=== PATIENT | male | born 1965 | race Caucasian/White ===

== ENCOUNTER 2021-12-28 10:03 | Observation (INO) | payer BC ==
[2021-12-28 10:09] LABS: Glucose,Whole Blood 90 mg/dL (75-99)
[2021-12-28] MEDS ORDERED: ALTEPLASE BOLUS FOR STROKE 9 MG in EMPTY SYRINGE 1 SYR IV STA (10:09)
[2021-12-28] MEDS ORDERED: ALTEPLASE 81 MG in EMPTY BAG 1 BAG IV STA (10:09)
--- NOTE | 2021-12-28 10:30 | CT ---
EXAMINATION TYPE: CT brain wo con for TPA DATE OF EXAM: 12/28/2021 COMPARISON: None HISTORY: 56-year-old male neurologic deficit, acute, stroke suspected, unresponsive, confusion TECHNIQUE: Examination was done in axial plane without intravenous contrast. Coronal and sagittal r econstructions performed. CT DLP: 1132 mGycm Automated exposure control for dose reduction was used. FINDINGS: There is no evidence of acute intracranial hemorrhage, acute ischemic changes, mass, mass-effect, or extra-axial fluid collection. There is no effacement of cerebral sulci or basal subarachnoid cister ns. There is no hydrocephalus. There is no midline shift. [place]-white matter distinction is preserv ed. Leftward nasal septal deviation. Paranasal sinuses and mastoid air cells well pneumatized. Orbits and globes are intact. IMPRESSION: No acute intracranial abnormality seen.
--- NOTE | 2021-12-28 10:59 | CT ---
EXAMINATION TYPE: CT angio head neck DATE OF EXAM: 12/28/2021 COMPARISON: CT brain same day HISTORY: 56-year-old male neurologic deficit, acute, stroke suspected, Altered mental status, unrespo nsive TECHNIQUE: Contiguous axial scanning of the head and neck performed with IV Contrast, patient injecte d with 65 mL of Isovue 370. Coronal/sagittal MIP reconstructions performed. 3-D reconstructions gener ated on a dedicated independent workstation. CT DLP: 908.1 mGycm Automated exposure control for dose reduction was used. FINDINGS: NECK: Conventional arch vessel branching anatomy. The bilateral vertebral arteries are codominant and patent throughout the course. Brachiocephalic artery is tortuous. The right common and internal carotid arteries are widely patent by NASCET criteria. Tortuous upper c ervical right ICA. The left common and internal carotid arteries are widely patent by NASCET criteria. Bilateral palatine tonsillar hypertrophy. Calcifications on the right measuring up to 5 mm suggests s equela of prior infection. There is asymmetric prominence along the hypopharynx with soft tissue effacement of the right pirifor m sinus, axial image 397. This should be correlated with direct inspection to exclude a mucosal lesio n. There is a mild groundglass changes in the visualized upper lungs which should be correlated clinical ly to exclude pneumonitis. HEAD: The vertebral and basilar arteries are patent. Anatomic variation with a large right posterior commun icating artery. Posterior circulation otherwise patent. The internal carotid arteries and remainder of the anterior circulation appear patent. Normal anatomi c variation with early bifurcation M1 segment left MCA. Dural venous sinuses are patent. No aneurysmal change is identified. IMPRESSION: NECK: 1. WIDELY PATENT CAROTID AND VERTEBRAL ARTERIES OF THE NECK. 2. PALATINE TONSILLAR HYPERTROPHY. SOME ASYMMETRIC SOFT TISSUE PROMINENCE ALONG THE RIGHT SIDE OF THE HYPOPHARYNX EFFACING THE RIGHT PIRIFORM SINUS. THIS MAY BE CHRONIC POSTINFLAMMATORY CHANGE. RECOMMEN D OUTPATIENT DIRECT VISUALIZATION TO EXCLUDE A MUCOSAL LESION HERE. 3. MILD GROUNDGLASS CHANGES IN THE VISUALIZED UPPER LUNGS. CORRELATE TO EXCLUDE SOME TYPE OF PNEUMONI TIS SUCH COVID PNEUMONIA. HEAD: 4. NO LARGE VESSEL INTRACRANIAL ARTERIAL OCCLUSION, SIGNIFICANT STENOSIS, OR ANEURYSMAL CHANGE IS SEE N.
--- NOTE | 2021-12-28 11:03 | XR ---
EXAMINATION TYPE: XR chest 2V DATE OF EXAM: 12/28/2021 COMPARISON: NONE HISTORY: Shortness of breath TECHNIQUE: Frontal and lateral views of the chest are obtained. FINDINGS: Scattered senescent parenchymal changes noted. Hyperinflation compatible with COPD. No evidence for infiltrate. No evidence for atelectasis. Heart size is stable. Mediastinal structures are stable and grossly unremarkable. No evidence for hilar prominence. Degenerative changes dorsal spine. IMPRESSION: 1. No evidence for acute pulmonary disease.
[2021-12-28] MEDS ORDERED: SODIUM CHLORIDE 0.9% 50 ML MINI-BAG IV ONE (11:09)
[2021-12-28 11:13] LABS: Basophils % (A) 0 %; Eosinophils # (A) 0.1 k/uL (0-0.7); Eosinophils % (A) 1 %; HCT 41.9 % (39.0-53.0); HGB 14.4 gm/dL (13.0-17.5); Lymphocytes # (A) 0.8 k/uL (1.0-4.8); Lymphocytes % (A) 9 %; MCH 31.5 pg (25.0-35.0); MCHC 34.3 g/dL (31.0-37.0); MCV 91.8 fL (80.0-100.0); Mean Platelet Volume 8.1; Monocytes # (A) 0.7 k/uL (0-1.0); Monocytes % (A) 8 %; Neutrophils # (A) 7.5 k/uL (1.3-7.7); Neutrophils % (A) 81 %; Platelet Count 268 k/uL (150-450); RBC 4.56 m/uL (4.30-5.90); RDW 14.6 % (11.5-15.5); WBC 9.2 k/uL (3.8-10.6)
[2021-12-28 11:23] LABS: ALT 47 U/L (4-49); AST 43 U/L (17-59); African American GFR (CKD) >90 (>60 ml/min/1.73 sqM); Albumin 4.1 g/dL (3.5-5.0); Alkaline Phosphatase 65 U/L (38-126); Anion Gap 12 mmol/L; Blood Urea Nitrogen 12 mg/dL (9-20); Calcium 9.5 mg/dL (8.4-10.2); Carbon Dioxide 21 mmol/L (22-30); Chloride 107 mmol/L (98-107); Glucose 90 mg/dL (74-99); Non-African American GFR(CKD) >90 (>60 ml/min/1.73 sqM); Potassium 3.1 mmol/L (3.5-5.1); Sodium 140 mmol/L (137-145); Total Bilirubin 1.7 mg/dL (0.2-1.3); Total Protein 6.4 g/dL (6.3-8.2)
[2021-12-28 11:25] LABS: Partial Thromboplastin Time 23.1 sec (22.0-30.0); Prothrombin Time 10.9 sec (9.0-12.0)
--- NOTE | 2021-12-28 12:39 | ED ---
Neuro HPI - General Chief Complaint: Neuro Symptoms/Deficit Stated Complaint: AMS Time Seen by Provider: 12/28/21 10:03 Source: family, RN/MD, EMS, RN notes reviewed Mode of arrival: EMS Limitations: altered mental status - History of Present Illness Is the patient presenting with stroke symptoms?: Yes Last Known Well Date: 12/28/21 Last Known Well Time: 09:39 Initial Comments: 56-year-old male with a history of high cholesterol but no prior history of stroke who presents by EMS from his doctor's office where he suddenly became less responsive confused unable follow commands with some recurrent generalized weakness. Stroke as suspected. He was brought here by EMS. A code alteplase was called immediately upon arrival. The stroke team was activated. No other information available at this time but later was found that the patient had driven him and his to his doctor's appointment he been acting his usual self this morning other than he has been somewhat anxious apparently. Per paramedics patient was able to weight-bear in the transfer into the EMS cart. H e does not seem to be able move his legs by himself however. - Related Data Home Medications: Home Medications Medication Instructions Recorded Confirmed Albuterol Inhaler [Ventolin Hfa 2 puff INHALATION RT-Q4H PRN 12/28/21 12/28/21 Inhaler] Aspirin EC [Ecotrin Low Dose] 81 mg PO DAILY 12/28/21 12/28/21 Atorvastatin Calcium [Lipitor] 20 mg PO HS 12/28/21 12/28/21 Levothyroxine Sodium [Synthroid] 150 mcg PO DAILY 12/28/21 12/28/21 Allergies/Adverse Reactions: Allergies Allergy/AdvReac Type Severity Reaction Status Date / Time No Known Allergies Allergy Verified 12/28/21 10:57 Review of Systems ROS Statement: Those systems with pertinent positive or pertinent negative responses have been documented in the HPI. ROS Other: All systems not noted in ROS Statement are negative. Limitations: ROS unobtainable due to patients medical condition General Exam - General Exam Comments Initial Comments: This is a well-developed well-nourished awake but very slow to respond male who appears to be demonstrate expressive and receptive aphasia Limitations: altered mental status, physical limitation General appearance: obtunded Head exam: Present: atraumatic, normocephalic, normal inspection Eye exam: Present: normal appearance, PERRL, EOMI. Absent: scleral icterus, conjunctival injection, periorbital swelling ENT exam: Present: normal exam, mucous membranes moist Neck exam: Present: normal inspection. Absent: tenderness, meningismus, lymphadenopathy Respiratory exam: Present: normal lung sounds bilaterally. Absent: respiratory distress, wheezes, rales, rhonchi, stridor Cardiovascular Exam: Present: regular rate, normal rhythm, normal heart sounds. Absent: systolic murmur, diastolic murmur, rubs, gallop, clicks GI/Abdominal exam: Present: soft, normal bowel sounds. Absent: distended, tenderness, guarding, rebound, rigid Extremities exam: Present: normal inspection, full ROM, normal capillary refill. Absent: tenderness, pedal edema, joint swelling, calf tenderness Back exam: Present: normal inspection Neurological exam: Present: alert, CN II-XII intact, reflexes normal Psychiatric exam: Present: normal affect, normal mood Skin exam: Present: warm, dry, intact, normal color. Absent: rash Stroke MDM - Lab Data Result diagrams: 12/28/21 10:35 12/28/21 10:35 Lab Results 12/28/21 12/28/21 12/28/21 Range/Units 10:06 10:35 10:35 WBC 9.2 (3.8-10.6) k/uL RBC 4.56 (4.30-5.90) m/uL Hgb 14.4 (13.0-17.5) gm/dL Hct 41.9 (39.0-53.0) % MCV 91.8 (80.0-100.0) fL MCH 31.5 (25.0-35.0) pg MCHC 34.3 (31.0-37.0) g/dL RDW 14.6 (11.5-15.5) % Plt Count 268 (150-450) k/uL MPV 8.1 Neutrophils % 81 % Lymphocytes % 9 % Monocytes % 8 % Eosinophils % 1 % Basophils % 0 % Neutrophils # 7.5 (1.3-7.7) k/uL Lymphocytes # 0.8 L (1.0-4.8) k/uL Monocytes # 0.7 (0-1.0) k/uL Eosinophils # 0.1 (0-0.7) k/uL Basophils # 0.0 (0-0.2) k/uL PT 10.9 (9.0-12.0) sec INR 1.0 (<1.2) APTT 23.1 (22.0-30.0) sec Sodium (137-145) mmol/L Potassium (3.5-5.1) mmol/L Chloride (98-107) mmol/L Carbon Dioxide (22-30) mmol/L Anion Gap mmol/L BUN (9-20) mg/dL Creatinine (0.66-1.25) mg/dL Est GFR (CKD-EPI)AfAm (>60 ml/min/1.73 sqM) Est GFR (CKD-EPI)NonAf (>60 ml/min/1.73 sqM) Glucose (74-99) mg/dL POC Glucose (mg/dL) 90 (75-99) mg/dL POC Glu Bill Board Poster ID Emely Trivedi Calcium (8.4-10.2) mg/dL Total Bilirubin (0.2-1.3) mg/dL AST (17-59) U/L ALT (4-49) U/L Alkaline Phosphatase (38-126) U/L Troponin I (0.000-0.034) ng/mL Total Protein (6.3-8.2) g/dL Albumin (3.5-5.0) g/dL Coronavirus (PCR) (Not Detectd) 12/28/21 12/28/21 12/28/21 Range/Units 10:35 10:35 11:49 WBC (3.8-10.6) k/uL RBC (4.30-5.90) m/uL Hgb (13.0-17.5) gm/dL Hct (39.0-53.0) % MCV (80.0-100.0) fL MCH (25.0-35.0) pg MCHC (31.0-37.0) g/dL RDW (11.5-15.5) % Plt Count (150-450) k/uL MPV Neutrophils % % Lymphocytes % % Monocytes % % Eosinophils % % Basophils % % Neutrophils # (1.3-7.7) k/uL Lymphocytes # (1.0-4.8) k/uL Monocytes # (0-1.0) k/uL Eosinophils # (0-0.7) k/uL Basophils # (0-0.2) k/uL PT (9.0-12.0) sec INR (<1.2) APTT (22.0-30.0) sec Sodium 140 (137-145) mmol/L Potassium 3.1 L (3.5-5.1) mmol/L Chloride 107 (98-107) mmol/L Carbon Dioxide 21 L (22-30) mmol/L Anion Gap 12 mmol/L BUN 12 (9-20) mg/dL Creatinine 0.64 L (0.66-1.25) mg/dL Est GFR (CKD-EPI)AfAm >90 (>60 ml/min/1.73 sqM) Est GFR (CKD-EPI)NonAf >90 (>60 ml/min/1.73 sqM) Glucose 90 (74-99) mg/dL POC Glucose (mg/dL) (75-99) mg/dL POC Glu Bill Board Poster ID Calcium 9.5 (8.4-10.2) mg/dL Total Bilirubin 1.7 H (0.2-1.3) mg/dL AST 43 (17-59) U/L ALT 47 (4-49) U/L Alkaline Phosphatase 65 (38-126) U/L Troponin I <0.012 (0.000-0.034) ng/mL Total Protein 6.4 (6.3-8.2) g/dL Albumin 4.1 (3.5-5.0) g/dL Coronavirus (PCR) Not Detected (Not Detectd) - NIH Stroke Scale 1a. Level of Consciousness: (1) not alert, arousable 1b. LOC Questions: (2) answers no questions correctly 1c. LOC Commands: (2) performs no tasks correctly 2. Best Gaze: (2) forced deviation 3. Visual: (0) no visual loss 4. Facial Palsy: (0) normal symmetrical movement 5a. Motor Arm Left: (3) no gravity effort 5b. Motor Arm Right: (3) no gravity effort 6a. Motor Leg Left: (3) no gravity effort 6b. Motor Leg Right: (3) no gravity effort 7. Limb Ataxia: (2) present 2 limbs 8. Sensory: (2) severe/total sensory loss 9. Best Language: (2) severe aphasia 10. Dysarthria: (1) mild/moderate dysarthria 11. Extinction/Inattention: (2) profound inattention - Medical Decision Making The patient present with evidence of possible CVA with sudden onset of confusion with compared receptive and expressive aphasia. No trauma reported fevers chills or sweats patient was apparently acting his usual self this morning except for maybe being somewhat anxious about events in his personal life. He presents emergency department by EMS with a code alteplase being called patient did have CAT scans and CT angiogram done negative for acute findings. Patient quickly recover from an approximately 29 213 and 12 then down to a 1. Patient was not a candidate for TPA. I did discuss the case with his family and him reevaluation the patient is able move all of his extremities answer questions appropriately though somewhat slowly patient will be admitted for inpatient evaluation and treatment for TIA. Conversion reaction may be considered. Patient does have low potassium this will be corrected magnesium is pending - Radiology Data Radiology results: report reviewed (No evidence of bleeding obstruction seen on the CT angios.), image reviewed - EKG Data -: EKG Interpreted by Me EKG shows normal: sinus rhythm (Sinus rhythm rate 71. Interval 161 QRS 88 QT since QTC 387/410 nonspecific T-wave configuration occasional PVCs) Past Medical History Past Medical History: Hypertension, Thyroid Disorder History of Any Multi-Drug Resistant Organisms: Unobtainable Past Surgical History: Unable to Obtain Past Psychological History: Unable to Obtain Smoking Status: Unknown if ever smoked Past Alcohol Use History: Unable to Obtain Past Drug Use History: Unable to Obtain Course Vital Signs 12/28/21 12/28/21 12/28/21 10:05 10:25 10:30 Temperature 97.3 F L 97.9 F 98.0 F Pulse Rate 89 74 70 Respiratory 16 16 16 Rate Blood Pressure 151/84 158/88 156/82 O2 Sat by Pulse 100 99 99 Oximetry 12/28/21 12/28/21 11:00 12:03 Temperature 97.5 F L 97.7 F Pulse Rate 71 77 Respiratory 16 16 Rate Blood Pressure 154/81 155/89 O2 Sat by Pulse 100 100 Oximetry - Reevaluation(s) Reevaluation #1: 12/28/21 12:40 Reevaluation patient finds it his mentation is improving his initial NIH score was approximately 29 he had markedly improved and a brief period time Reevaluation #2: 12/28/21 12:40 I did discuss the findings with the patient's was present patient with more alert and demonstrated improved cognition. Reevaluation was able move all his extremities and follow commands. Critical Care Time Critical Care Time: Yes Total Critical Care Time: 39 Critical Care Time: Critical care time includes initial presentation with history and physical discussed with paramedics on arrival labs x-rays CAT scans discuss with the interventional neurologist Dr. hampton discussed with Dr. Chapa this with the patient's . Review of old charting was available multiple reevaluation the patient documentation the above Disposition Clinical Impression: Transient cerebral ischemia Disposition: ADMITTED IP TO THIS HOSP Condition: Stable Referrals: August Chapa MD [Primary Care Provider] - 1-2 days
[2021-12-28] MEDS ORDERED: POTASSIUM CHLORIDE ER 20 MEQ TAB.ER PO STA (12:53)
[2021-12-28] MEDS ORDERED: ASPIRIN 325 MG TAB PO STA (12:54)
[2021-12-28] MEDS ORDERED: POTASSIUM CHLORIDE 20 MEQ in WATER FOR INJECTION 1 100ML.BAG IVPB STA (12:54)
[2021-12-28] MEDS ORDERED: ALBUTEROL NEBULIZED 2.5 MG/3 ML INHALATION PRN (12:56)
[2021-12-28] MEDS ORDERED: Potassium Replacement Protocol 1 EACH MISC MISCELLANE PRN (13:34)
[2021-12-28] MEDS: SODIUM CHLORIDE 0.9% 1,000 ML IV SCH ×2 (13:37→20:42)
[2021-12-28] MEDS: FAMOTIDINE 20 MG TAB PO SCH (20:42)
[2021-12-28] MEDS ORDERED: ATORVASTATIN 20 MG TAB PO SCH (21:00)
[2021-12-28] MEDS ORDERED: ATORVASTATIN 80 MG TAB PO SCH (21:00)
--- NOTE | 2021-12-29 00:43 | P.CNNES ---
History of Present Illness Consult date: 12/28/21 Requesting physician: Nigel Mixon Reason for Consult: TIA History of Present Illness: Patient is a 56-year-old male came to the hospital by ambulance today at 10:03 AM for possible TIA versus CVA. Patient tells me that he went to Dr. Chapa's office, his primary physician for a routine checkup early this morning. He was fine prior to his arrival to the office. While he was in the office, he started shaking all of a sudden, involving both sides. He denies losing consciousness. He was brought to the hospital. As per EMS flow sheet, the staff at the scene reported patient suddenly became altered and not responding verbally. Per patient's report, patient drove to the appointment and was acting completely normal this a.m. No history of falls or trauma. Patient was not complaining of anything earlier in the morning. Patient not responding to any verbal instructions with any purposeful movements. Patient was unable to communicate any words or sounds. He was able to stand but unsteady, no attempt to ambulate. Patient's pupils were equal and reactive. No obvious facial droop or obvious unilateral weakness. Patient's blood pressure was 136/72, pulse of 76, respiration 18 saturation 98%. Blood sugar 105. Vital signs on arrival blood pressure 151/84 pulse 89 temperature 97.3. Blood pressure has been running slightly high 155/89 in the ER. Patient's blood test shows normal CBC, PT/PTT, Chem-20. Troponin negative, palacio virus PCR negative. Computed tomography scan of the head showed no acute process. Paranasal sinuses are clear. I personally reviewed computed tomography scan of the head, and agree with the findings. CTA of the head showed no large vessel intracranial arterial occlusion, significant stenosis or aneurysm. CTA of the neck showed widely patent carotid and vertebral arteries of the neck. [place] tonsillar hypertrophy. Mild groundglass changes in the visualized upper lungs. Correlate to exclude some type of pneumonitis. I would defer to internal medicine to address these 2 later findings. Chest x-ray is normal. EKG with sinus rhythm with occasional ventricular premature complexes. Nonspecific T-wave abnormality. Apparently patient's symptoms rapidly resolved in the ER. Initial NIH stroke scale was reported 28. However while in the ER, it started improving down to 12 and then 1. Stroke code was activated. Patient was not a candidate for TPA because of rapidly improving symptoms as above. Patient denies any headache any numbness tingling slurred speech or facial droop. Home medications include aspirin 81 mg, Lipitor 20 mg, levothyroxine and albuterol. Patient denies diabetes, no hypertension, denies tobacco use. On asking about d rinking habits, patient states that he drank 2 or 3 time only 15 years ago. Regarding tobacco he mentions that he smoked couple cigarettes a day only for a month, several years ago. Denies any history of seizures. Patient states that he lives with his and son. At present he feels back to baseline. Review of Systems As mentioned above in detail in HPI. All other 14 point of review systems reviewed and noncontributory to the current illness. Past Medical History Past Medical History: Hyperlipidemia, Hypertension, Thyroid Disorder Additional Past Medical History / Comment(s): hernia History of Any Multi-Drug Resistant Organisms: Unobtainable Past Surgical History: Hernia Repair, Orthopedic Surgery Additional Past Surgical History / Comment(s): Bilateral knee arthoplasty Past Anesthesia/Blood Transfusion Reactions: No Reported Reaction Past Psychological History: No Psychological Hx Reported Smoking Status: Never smoker Past Alcohol Use History: None Reported Past Drug Use History: None Reported - Past Family History Mother Additional Family Medical History / Comment(s): "cardiac issues" at 82 years old Father Additional Family Medical History / Comment(s): anxiety, at 82 years old. Medications and Allergies Home Medications Medication Instructions Recorded Confirmed Type Albuterol Inhaler [Ventolin Hfa 2 puff INHALATION RT-Q4H PRN 12/28/21 12/28/21 History Inhaler] Aspirin EC [Ecotrin Low Dose] 81 mg PO DAILY 12/28/21 12/28/21 History Atorvastatin Calcium [Lipitor] 20 mg PO HS 12/28/21 12/28/21 History Levothyroxine Sodium [Synthroid] 150 mcg PO DAILY 12/28/21 12/28/21 History Allergies Allergy/AdvReac Type Severity Reaction Status Date / Time No Known Allergies Allergy Verified 12/28/21 10:57 Physical Examination - Vital Signs Vital Signs: Vital Signs Temp Pulse Pulse Resp BP BP Pulse Ox 12/28/21 17:37 98 F 71 15 142/74 98 12/28/21 12:03 97.7 F 77 16 155/89 100 12/28/21 11:00 97.5 F L 71 16 154/81 100 12/28/21 10:30 98.0 F 70 16 156/82 99 12/28/21 10:25 97.9 F 74 16 158/88 99 12/28/21 10:05 97.3 F L 89 16 151/84 100 Intake and Output 12/28/21 12/28/21 12/28/21 06:59 14:59 22:59 Intake Total 120 Balance 120 Intake: Oral 120 Other: Weight 112.945 kg Patient is a middle aged male, appears slightly older than his stated age. Patient is alert awake oriented to time place and person. He knows it is 12/27/2021 and that he is in [facility] in [place]. Knows name of the current president. Patient has often delayed speech, slow mentation and increased latency time to answer questions. Speech and language functions are normal. Patient can name and repeat very well. No aphasia or dysarthria. Attention, concentration and fund of knowledge is slightly limited. On cranial examination, pupils are equal, round and reacting to light, visual basurto are full on confrontation with no neglect on double simultaneous stimulation, extraocular muscles are intact with no nystagmus. Face is symmetric, tongue protrudes to the midline. Palatal elevation and sensation normal, hearing is slightly decreased for finger rubbing bilaterally and shoulder shrug normal, facial sensation normal. Shoulder shrug normal. On muscle strength testing, there is no pronator drift and the strength is normal in arms and legs distally and proximally. Deep tendon reflexes are symmetric but to 1+ in both arms and legs and plantars are downgoing bilaterally. Sensory to touch is equal with no neglect. Cerebellar function showed no ataxia for [id number] testing. Patient does have some distal tremors for ubkqsb-uw-[id number] testing bilaterally. No ataxia for [id number]-[id number] testing. Tone and bulk of muscles normal. Gait deferred. On general examination, there is no carotid bruit or murmur, S1-S2 audible. Abdomen is soft nontender. no organomegaly. Bowel sounds present. Chest is clear. Peripheral pulses are present. No edema. Results - Laboratory Findings CBC and BMP: 12/28/21 10:35 12/28/21 18:17 Abnormal Lab Findings: Abnormal Labs 12/28/21 12/28/21 10:35 10:35 Lymphocytes # 0.8 L Potassium 3.1 L Carbon Dioxide 21 L Creatinine 0.64 L Total Bilirubin 1.7 H Assessment and Plan Assessment: * Possible TIA, rule out CVA. Seizure also in the differential. * Hypertension * Hyperlipidemia Plan: * MRI of the brain without contrast rule out CVA * Patient had a normal CTA of head and neck. * 2-D echo with bubble study, rule out PFO. * EEG rule out epileptiform activity. * Lipid panel, hemoglobin A1c * Telemetry monitoring * Patient was taking aspirin 81 mg daily at home. Patient has received aspirin 325 mg in the ER. Continue aspirin 81 mg daily for now. * Continue close neuro checks. * Neurology will follow. Thank you for the consult.
[2021-12-29] MEDS: LEVOTHYROXINE 75 MCG TAB PO SCH (06:38)
[2021-12-29] MEDS: FAMOTIDINE 20 MG TAB PO SCH ×2 (09:12→21:33)
[2021-12-29 09:20] LABS: Basophils % (A) 0 %; Eosinophils # (A) 0.1 k/uL (0-0.7); Eosinophils % (A) 1 %; HCT 41.2 % (39.0-53.0); Lymphocytes # (A) 0.7 k/uL (1.0-4.8); Lymphocytes % (A) 10 %; MCH 31.7 pg (25.0-35.0); MCV 93.2 fL (80.0-100.0); Mean Platelet Volume 7.8; Monocytes # (A) 0.4 k/uL (0-1.0); Monocytes % (A) 6 %; Neutrophils # (A) 6.3 k/uL (1.3-7.7); Neutrophils % (A) 82 %; Platelet Count 266 k/uL (150-450); RBC 4.42 m/uL (4.30-5.90); RDW 14.7 % (11.5-15.5); WBC 7.6 k/uL (3.8-10.6)
[2021-12-29 09:45] LABS: ALT 41 U/L (4-49); AST 31 U/L (17-59); African American GFR (CKD) >90 (>60 ml/min/1.73 sqM); Albumin 3.4 g/dL (3.5-5.0); Alkaline Phosphatase 56 U/L (38-126); Anion Gap 5 mmol/L; Blood Urea Nitrogen 7 mg/dL (9-20); Carbon Dioxide 25 mmol/L (22-30); Chloride 108 mmol/L (98-107); Glucose 118 mg/dL (74-99); Non-African American GFR(CKD) >90 (>60 ml/min/1.73 sqM); Potassium 3.3 mmol/L (3.5-5.1); Sodium 138 mmol/L (137-145); Total Bilirubin 1.5 mg/dL (0.2-1.3); Total Protein 5.9 g/dL (6.3-8.2)
--- NOTE | 2021-12-29 11:46 | MR ---
EXAMINATION TYPE: MR brain wo con DATE OF EXAM: 12/29/2021 COMPARISON: CT brain 1 day earlier. HISTORY: TIA vs CVA. Acute onset neural deficit on admission one day earlier. TECHNIQUE: Multiplanar, multisequence imaging of the brain and brainstem is performed without IV cont rast. FINDINGS: Diffusion weighted images demonstrate no evidence of a recent infarct or other diffusion abnormality. There is no extraaxial fluid collection or significant white matter signal abnormality. The ventricu lar system and cisternal spaces are normal in size and appearance. The brain volume is age appropria te. Midline structures demonstrate normal morphology. The craniocervical junction appears within normal limits. Normal vascular flow voids are present. The visualized sinuses are clear and the globes are i ntact. Small amount of fluid signal right mastoid air cells. Correlate clinically to exclude mastoidi tis. IMPRESSION: No MRI evidence for recent infarct.
[2021-12-29] MEDS: SODIUM CHLORIDE 0.9% 1,000 ML IV SCH ×2 (11:55→21:30)
[2021-12-29] MEDS: POTASSIUM CHLORIDE ER 20 MEQ TAB.ER PO SCH (11:55)
--- NOTE | 2021-12-29 15:00 | EEG ---
ELECTROENCEPHALOGRAM REPORT DATE OF SERVICE: 12/29/2021 PREAMBLE: This is a 56-year-old male with an episode of altered mental status with some shaking and expressive aphasia. Rule out stroke, TIA versus seizure. EEG FINDINGS: This is a 21-channel digital EEG recorded with video component, utilizing 10/20 international system with referential and bipolar montages. Background consists of well developed, well regulated, moderate voltage activity in 8-9 hertz alpha. Background is posterior-dominant and reactive to eye opening and closing. Photic driving response was not seen. Some drowsiness was seen with appearance of bilaterally symmetric theta frequency rhythm, but deeper stages of sleep were not seen. No focal or generalized epileptiform activity was seen. EKG channel showed no arrhythmia. IMPRESSION: This is a normal awake and drowsy EEG. No focal, lateralized or epileptiform activity was seen. MMDOM / CLAY: [id number] /
[2021-12-29 16:14] LABS: Chol/HDL Ratio 2.09 Ratio; LDL Cholesterol,Calculated 35.6 mg/dL (0.0-131.0); VLDL Calculation 10.38 mg/dL (5.00-40.00)
--- NOTE | 2021-12-29 16:28 | P.HPIM ---
<Kristie, - Last Filed: 12/29/21 15:58> History of Present Illness H&P Date: 12/29/21 Chief Complaint: altered mental status patient is a pleasant 48-year-old male, that was transported by EMS from Dr. Chapa's office for altered mental status versus cva. initial NIH score of 28 that decreased to 0 during ER visit. Patient has a pertinent medical history of hyperlipidemia, hypothyroidism, hypertension. Patient did have recent covid19 infection that required hospitalization in November. Did recover and was at home without residual effects.patient was examined in the ER, computed tomography scan of the head showed no acute process. CTA of the head showed no large vessel intracranial arterial occlusion, stenosis or aneurysm. CTA of the neck showed widely patent carotid and vertebral arteries of the neck. Mild groundglass changes was visualized in the upper lungs, recent covid19 infection in November. chest x-ray was negative for acute pulmonary disease. MRI found no evidence for recent infarct. 12/29/21 patient was seen and examined at bedside. Alert and oriented 3, but speech delayed. No aphasia or slurred speech or unilateral weakness. Denies chest pain, headache, dizziness, palpitations, abdominal pain. Reports some difficulty breathing. Lab work reviewed, potassium 3.3 replacement protocol ordered. Kidney function and lipid enzymes within normal range. EEG was normal with no focal lateralized or epileptiform activity seen. Awaiting neurology recommendations. Review of Systems Constitutional: Denies chills, Denies fever, Denies weakness Ears, nose, mouth and throat: Denies headache Cardiovascular: Denies irregular heart beat, Denies lightheadedness, Denies pa lpitations Respiratory: Reports dyspnea, Denies cough, Denies pain on inspiration Gastrointestinal: Denies abdominal pain, Denies nausea, Denies vomiting Musculoskeletal: Denies gait dysfunction, Denies leg numbness/tingling, Denies muscle weakness, Denies myalgias Integumentary: Denies change in hair/nails Neurological: Denies aphasia, Denies ataxia, Denies double vision, Denies gait dysfunction, Denies head injury, Denies headaches, Denies loss of vision, Denies memory loss, Denies syncope, Denies weakness, Denies visual changes Psychiatric: Denies confusion, Denies memory loss, Denies mood swings Endocrine: Denies high blood sugars, Denies low blood sugars Allergic/Immunologic: Denies urticaria Past Medical History Past Medical History: Hyperlipidemia, Hypertension, Thyroid Disorder Additional Past Medical History / Comment(s): hernia History of Any Multi-Drug Resistant Organisms: Unobtainable Past Surgical History: Hernia Repair, Orthopedic Surgery Additional Past Surgical History / Comment(s): Bilateral knee arthoplasty Past Anesthesia/Blood Transfusion Reactions: No Reported Reaction Past Psychological History: No Psychological Hx Reported Smoking Status: Never smoker Past Alcohol Use History: None Reported Past Drug Use History: None Reported - Past Family History Mother Additional Family Medical History / Comment(s): "cardiac issues" at 82 year s old Father Additional Family Medical History / Comment(s): anxiety, at 82 years old. Medications and Allergies Home Medications Medication Instructions Recorded Confirmed Type Albuterol Inhaler [Ventolin Hfa 2 puff INHALATION RT-Q4H PRN 12/28/21 12/28/21 History Inhaler] Aspirin EC [Ecotrin Low Dose] 81 mg PO DAILY 12/28/21 12/28/21 History Atorvastatin Calcium [Lipitor] 20 mg PO HS 12/28/21 12/28/21 History Levothyroxine Sodium [Synthroid] 150 mcg PO DAILY 12/28/21 12/28/21 History Mirtazapine [Remeron] 30 mg PO HS 30 Days #60 tab 01/03/22 Rx fluPHENAZine [Prolixin 1MG] 2 mg PO BID 30 Days #60 tablet 01/03/22 Rx Allergies Allergy/AdvReac Type Severity Reaction Status Date / Time No Known Allergies Allergy Verified 12/28/21 10:57 Physical Exam Vitals: Vital Signs Temp Pulse Pulse Resp BP BP Pulse Ox 12/29/21 12:08 98.2 F 69 15 143/87 100 12/29/21 08:44 97.9 F 84 18 159/87 95 12/29/21 04:00 97.9 F 75 17 134/70 98 12/29/21 03:56 97.9 F 75 17 134/70 98 12/29/21 02:00 67 19 12/28/21 22:59 98.0 F 67 19 129/73 98 12/28/21 22:58 98.0 F 67 17 129/73 98 12/28/21 20:00 97.7 F 73 17 129/76 96 12/28/21 19:56 97.7 F 73 17 129/76 96 12/28/21 17:37 98 F 71 15 142/74 98 Intake and Output 12/29/21 12/29/21 12/29/21 06:59 14:59 22:59 Intake Total 700 220 Balance 700 220 Intake: Intake, IV Titration 700 Amount Sodium Chloride 0.9% 1, 700 000 ml @ 100 mls/hr IV . Q10H ARMEN Rx#:[id number] Oral 220 Other: # Voids 3 2 - Constitutional General appearance: cooperative, no acute distress, obese - EENT Eyes: EOMI, PERRLA ENT: normal oropharynx Ears: bilateral: normal - Neck Neck: normal ROM Carotids: bilateral: upstroke normal - Respiratory Respiratory: bilateral: CTA - Cardiovascular Heart rate: 84 Rhythm: regular Heart sounds: normal: S1, S2 radial pulse Peripheral Pulses: bilateral: Normal - Gastrointestinal General gastrointestinal: normal bowel sounds, soft - Integumentary Integumentary: normal - Neurologic alert, oriented 3, delayed speech Neurologic: focal deficits - Musculoskeletal Musculoskeletal: gait normal - Psychiatric flat affect Psychiatric: A&O x's 3 Results CBC & Chem 7: 12/29/21 08:46 12/29/21 08:46 Labs: Abnormal Lab Results - Last 24 Hours (Table) 12/29/21 12/29/21 Range/Units 08:46 08:46 Lymphocytes # 0.7 L (1.0-4.8) k/uL Potassium 3.3 L (3.5-5.1) mmol/L Chloride 108 H (98-107) mmol/L BUN 7 L (9-20) mg/dL Glucose 118 H (74-99) mg/dL Total Bilirubin 1.5 H (0.2-1.3) mg/dL Total Protein 5.9 L (6.3-8.2) g/dL Albumin 3.4 L (3.5-5.0) g/dL Chest x-ray: report reviewed CT Scan - head: report reviewed Thrombosis Risk Factor Assmnt - DVT/VTE Prophylaxis DVT/VTE Prophylaxis: Low risk, early ambulation encouraged - Choose All That Apply Each Factor Represents 1 point: Age 41-60 years, Obesity (BMI >25) Other Risk Factors: No Other congenital or acquired thrombophilia - If yes, enter type in comment: No Thrombosis Risk Factor Assessment Total Risk Factor Score: 2 Thrombosis Risk Factor Assessment Level: Low Risk Assessment and Plan Assessment: altered mental status delayed speech possible seizure Hypertension Hyperlipidemia Hypothyroidism Plan: possible TIA, neurology on consult, previous imaging negative for acute infarct, Continue neuro checks Continue to monitor orientation and mental status echocardiogram ordered with bubble study to rule out PFO, per neurology recommendation EEG negative for epileptiform activity, continue to monitor for seizure activity continue current medication regimen Monitor vital signs Full code Further recommendations to come based on patient's clinical course Time with Patient: Greater than 30 <August Chapa - Last Filed: 01/12/22 19:48> History of Present Illness I have personally seen and examined the patient, reviewed the documentation and agree with the assessment and plan as written. Number of minutes spent on the visit: Greater than 15. Results CBC & Chem 7: 12/31/21 11:48 12/30/21 07:59
--- NOTE | 2021-12-29 16:38 | P.PN ---
Subjective Progress Note Date: 12/29/21 Patient was seen for a follow-up. Patient continues to be somewhat confused. Dr. Chapa's PA was present today. She mentions that she has known patient from the previous admission, and he is very talkative, and he has altered mental status. Yesterday while he was at Dr. Chapa's office, he drove himself to the office, was able to walk into the room and while in the office he stopped answering questions, had a flat affect, not answering questions appropriately. At present patient states that he is having heavy breathing, pointing to the chest. Denies any pain anywhere else. No headache. No problem with the vision, numbness tingling or weakness. Patient's telemetry monitoring showing sinus rhythm, with some PVCs and trigeminy. No other arrhythmia. Objective - Vital Signs Vital signs: Vital Signs Temp 98.2 F 12/29/21 12:08 Pulse 69 12/29/21 12:08 Resp 15 12/29/21 12:08 BP 143/87 12/29/21 12:08 Pulse Ox 100 12/29/21 12:08 Intake & Output 12/28/21 12/29/21 12/29/21 18:59 06:59 18:59 Intake Total 120 1020 220 Balance 120 1020 220 Weight 112.945 kg Intake: Intake, IV Titration 900 Amount Sodium Chloride 0.9% 1, 900 000 ml @ 100 mls/hr IV . Q10H ARMEN Rx#:[id number] Oral 120 120 220 Other: # Voids 3 2 - Exam Patient is alert and awake. He knows it is 12/29/2021, that he is in [facility] in [place]. He knows name of the current president. He can name and repeat very well. He has slow mentation, delayed responses. He has a flat affect. Some word hesitancy noted. On cranial exertion pupils are round and reacting to light, visual basurto are full, extraocular muscles are intact, face is symmetric and tongue protrudes the midline. Palatal elevation and sensation normal. Hearing normal. On muscle strength testing there is no pronator drift and the strength is normal in arms and legs. No ataxia for [id number] testing. Tone and bulk of muscles normal. Sensations equal with no neglect. Gait deferred. - Labs CBC & Chem 7: 12/29/21 08:46 12/29/21 08:46 Labs: Abnormal Lab Results - Last 24 Hours (Table) 12/29/21 12/29/21 Range/Units 08:46 08:46 Lymphocytes # 0.7 L (1.0-4.8) k/uL Potassium 3.3 L (3.5-5.1) mmol/L Chloride 108 H (98-107) mmol/L BUN 7 L (9-20) mg/dL Glucose 118 H (74-99) mg/dL Total Bilirubin 1.5 H (0.2-1.3) mg/dL Total Protein 5.9 L (6.3-8.2) g/dL Albumin 3.4 L (3.5-5.0) g/dL Assessment and Plan Assessment: * Altered mental status, unclear etiology. All workup negative. Possible delirium, rule out TIA. * Hypertension * Hyperlipidemia Plan: * MRI of the brain without contrast is normal. No evidence of acute stroke. I personally reviewed MRI and agree with the findings. * Patient had a normal CTA of head and neck. * 2-D echo still pending. * EEG was performed, which is completely normal awake and drowsy. No focal, lateralizing or epileptiform activity was seen. * Lipid panel shows cholesterol 88, LDL 35, HDL 42 and triglycerides 51. We will decrease Lipitor to 40 mg. * Hemoglobin A1c 5.9 * Telemetry monitoring showing sinus rhythm, with some PVCs. No other arrhythmia. * Patient was taking aspirin 81 mg daily at home. Patient has received aspirin 325 mg in the ER. Continue aspirin 81 mg daily for now. * Patient complaining of "heavy breathing", pointing to the chest. Discussed with Dr. Chapa's PA, and recommended to consider cardiopulmonary evaluation. Addendum: After I had seen the patient, I was rounding on other patients in the same floor [address]. The nurse reported that patient wanted to see me. I came to see patient and patient appears to have a very flat affect, appeared somewhat anxiou s. He appeared extremely confused, somewhat delusional. 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 They say I was something lying about it. I talked to [id number] about issue with the stuff going on at work. They talked to me about stuff at work. I had signed paperwork at work." Uncertain if patient has developed acute psychosis, or delirium. No signs of intracranial infection. White cells are normal. As all neurological workup has come negative, would recommend ?psychiatry evaluation.
[2021-12-29] MEDS ORDERED: POTASSIUM CHLORIDE ER 20 MEQ TAB.ER PO STA (17:17)
--- NOTE | 2021-12-29 18:42 | CT ---
EXAMINATION TYPE: CT angio chest w con, with 3-D reconstruction renderings DATE OF EXAM: 12/29/2021 6:15 PM COMPARISON: None HISTORY: c/o chest tightness CT DLP: 785.5 mGycm Automated exposure control for dose reduction was used. CONTRAST: CTA scan of the thorax is performed with IV Contrast, patient injected with 100 mL of Isovu e 370, pulmonary embolism protocol. FINDINGS: AIRWAYS/LUNGS: The airways are unremarkable. There is a bilateral ill-defined groundglass opacity pat tern throughout the lung, and particularly so within the mid and lower lung zones. Otherwise, the curt gs are clear and well-expanded. PLEURAL SPACES: Unremarkable. MEDIASTINUM: There is satisfactory enhancement of the pulmonary artery and its branches, with no CT e vidence for pulmonary embolism. There are no acute aortic findings. There is no cardiomegaly. No sandy cardial effusion. No adenopathy. OTHER: No additional significant abnormality is seen. IMPRESSION: 1. NEGATIVE FOR PULMONARY EMBOLISM. 2. BILATERAL LUNG PARENCHYMAL PATTERN SUGGESTS ATYPICAL PNEUMONIA.
[2021-12-29 20:15] LABS: Glucose,Whole Blood 117 mg/dL (75-99)
--- NOTE | 2021-12-29 21:23 | CT ---
EXAMINATION TYPE: CT brain wo con DATE OF EXAM: 12/29/2021 COMPARISON: 12/28/2021 HISTORY: AMS CT DLP: 1099.1 mGycm Automated exposure control for dose reduction was used. FINDINGS: The ventricles, basal cisterns and sulci over the convexities are within normal limits and there is n o mass effect or shift of midline structures. No abnormal density is seen throughout the brain parenchyma and there is no acute intra or extra-axia l hemorrhage. The posterior fossa is grossly normal. Intraorbital contents appear normal and symmetric. Visualized paranasal sinuses and mastoid air cells are well aerated. The calvarium is intact. IMPRESSION: NO SIGNIFICANT ABNORMALITY SEEN.
[2021-12-29 21:28] LABS: Appearance,Urine Clear (Clear); Bilirubin,Urine Negative (Negative); Blood,Urine Negative (Negative); Color,Urine Yellow; Glucose,Urine (UA) Negative (Negative); Ketones,Urine 1+ (Negative); Leukocyte Esterase,Urine Negative (Negative); Nitrite,Urine Negative (Negative); Protein,Urine Negative (Negative); Specific Gravity,Urine 1.036 (1.001-1.035); Urobilinogen,Urine <2.0 mg/dL (<2.0)
[2021-12-29] MEDS: ATORVASTATIN 40 MG TAB PO SCH (21:33)
[2021-12-29] MEDS: DOXYCYCLINE 100 MG CAP PO SCH (21:33)
[2021-12-29 21:48] LABS: Amphetamine Screen,Urine Not Detected (NotDetected); Barbiturate Screen,Urine Not Detected (NotDetected); Benzodiazepines Screen,Urine Not Detected (NotDetected); Cocaine Screen,Urine Not Detected (NotDetected); Methadone Screen, Urine Not Detected (NotDetected); Opiate Screen,Urine Not Detected (NotDetected); Oxycodone Screen, Urine Not Detected (NotDetected); Phencyclidine Screen,Urine Not Detected (NotDetected); Tricyclic Antidepressant,Urine Not Detected (NotDetected); Urn Cannabinoid Scrn Not Detected (NotDetected)
[2021-12-30] MEDS ORDERED: CLOPIDOGREL 75 MG TAB PO STA (00:20)
[2021-12-30] MEDS: SODIUM CHLORIDE 0.9% 1,000 ML IV SCH ×2 (05:48→21:44)
[2021-12-30] MEDS: LEVOTHYROXINE 75 MCG TAB PO SCH (05:50)
[2021-12-30 08:27] LABS: Basophils % (A) 0 %; Eosinophils # (A) 0.1 k/uL (0-0.7); Eosinophils % (A) 1 %; HGB 13.7 gm/dL (13.0-17.5); Lymphocytes # (A) 0.8 k/uL (1.0-4.8); Lymphocytes % (A) 11 %; MCHC 33.3 g/dL (31.0-37.0); MCV 93.3 fL (80.0-100.0); Monocytes # (A) 0.6 k/uL (0-1.0); Monocytes % (A) 8 %; Neutrophils # (A) 5.6 k/uL (1.3-7.7); Neutrophils % (A) 78 %; Platelet Count 260 k/uL (150-450); RDW 14.3 % (11.5-15.5); WBC 7.2 k/uL (3.8-10.6)
[2021-12-30 08:40] LABS: ALT 37 U/L (4-49); AST 26 U/L (17-59); African American GFR (CKD) >90 (>60 ml/min/1.73 sqM); Albumin 3.4 g/dL (3.5-5.0); Alkaline Phosphatase 57 U/L (38-126); Anion Gap 3 mmol/L; Blood Urea Nitrogen 7 mg/dL (9-20); Carbon Dioxide 26 mmol/L (22-30); Chloride 110 mmol/L (98-107); Glucose 111 mg/dL (74-99); Non-African American GFR(CKD) >90 (>60 ml/min/1.73 sqM); Potassium 3.7 mmol/L (3.5-5.1); Sodium 139 mmol/L (137-145); Total Bilirubin 1.1 mg/dL (0.2-1.3); Total Protein 5.9 g/dL (6.3-8.2)
[2021-12-30] MEDS: FAMOTIDINE 20 MG TAB PO SCH ×2 (09:08→20:40)
[2021-12-30] MEDS: THIAMINE 100 MG TAB PO SCH (09:08)
[2021-12-30] MEDS: DOXYCYCLINE 100 MG CAP PO SCH ×2 (09:08→21:16)
[2021-12-30] MEDS: ASPIRIN 81 MG PO SCH (09:08)
[2021-12-30] MEDS: CLOPIDOGREL 75 MG TAB PO SCH (09:08)
[2021-12-30 10:12] LABS: Folate, Serum 14.7 ng/mL (4.40-31.00)
--- NOTE | 2021-12-30 10:25 | P.CNPUL ---
History of Present Illness Consult date: 12/30/21 Requesting physician: August Chapa Reason for consult: abnormal CXR/CT Chief complaint: Decreased responsiveness History of present illness: This is a pleasant 56-year-old male patient who follows with Dr. August Chapa as his primary care provider. He has a history of hyperlipidemia, hypertension, hypothyroidism. Lifelong nonsmoker. He was at his PCPs office yesterday when he had a sudden onset of altered mental status and unresponsiveness. He was transferred here by EMS for and a code stroke was called. The patient's initial NIH score was 28 but prior to his leaving the emergency room was 0. Computed tomography scan of the brain revealed no significant abnormalities. Angiogram o f the head revealed patent carotid and vertebral arteries. No large vessel intracranial arterial occlusion, significant stenosis or aneurysmal is seen. EEG was reported as normal. No focal, lateralizing or epileptiform activity. The patient does have a history of COVID-19 infection requiring hospitalization in November 2021. Chest x-ray had revealed no acute pulmonary process. A CT angiogram was performed and was negative for pulmonary embolism. There is some bilateral original pattern suggestive of COVID-19 pneumonia. CoVID screen here was negative. Urine drug screen was negative. White count 7.2. Hemoglobin 13.7. Lymphocytes 0.8. Sodium 139. He hasn't 3.7. BUN 7. Creatinine 0.76. Glucose 111. Vitamin B12 14,000. Treponema Pallidum antibody nonreactive. The patient is seen today in consultation on the selective care unit. He is currently resting comfortably in bed. Awake and alert in no acute distress. No aphasia. No dysphagia. Denies potential for aspiration. He is moving all 4 extremities. Review of Systems REVIEW OF SYSTEMS: CONSTITUTIONAL: Altered mental status. Denies any recent significant weight loss or weight gain. EYES: Denies change in vision. EARS, NOSE, MOUTH, THROAT: Denies headaches, denies sore throat. CARDIOVASCULAR: Denies chest pain, palpitations or syncopal episodes. RESPIRATORY: Denies shortness of breath, cough, congestion or hemoptysis. GASTROINTESTINAL: Denies change in appetite, denies abdominal pain GENITOURINARY: Denies hematuria, denies infections. MUSKULOSKELETAL: Denies pain, denies swelling. INTEGUMENTARY: Denies rash, denies eczema. NEUROLOGICAL: Episode of altered mental status. PSYCHIATRIC: Denies anxiety, denies depression. HEMATOLOGIC/LYMPHATIC: Denies anemia, denies enlarged lymph nodes. Past Medical History Past Medical History: Hyperlipidemia, Hypertension, Thyroid Disorder Additional Past Medical History / Comment(s): hernia History of Any Multi-Drug Resistant Organisms: Unobtainable Past Surgical History: Hernia Repair, Orthopedic Surgery Additional Past Surgical History / Comment(s): Bilateral knee arthoplasty Past Anesthesia/Blood Transfusion Reactions: No Reported Reaction Past Psychological History: No Psychological Hx Reported Smoking Status: Never smoker Past Alcohol Use History: None Reported Past Drug Use History: None Reported - Past Family History Mother Additional Family Medical History / Comment(s): "cardiac issues" at 82 y ears old Father Additional Family Medical History / Comment(s): anxiety, at 82 years old. Medications and Allergies Home Medications Medication Instructions Recorded Confirmed Type Albuterol Inhaler [Ventolin Hfa 2 puff INHALATION RT-Q4H PRN 12/28/21 12/28/21 History Inhaler] Aspirin EC [Ecotrin Low Dose] 81 mg PO DAILY 12/28/21 12/28/21 History Atorvastatin Calcium [Lipitor] 20 mg PO HS 12/28/21 12/28/21 History Levothyroxine Sodium [Synthroid] 150 mcg PO DAILY 12/28/21 12/28/21 History Allergies Allergy/AdvReac Type Severity Reaction Status Date / Time No Known Allergies Allergy Verified 12/28/21 10:57 Physical Exam Vitals: Vital Signs Temp Pulse Pulse Pulse Resp BP BP 12/30/21 08:00 99 F 79 16 132/84 12/30/21 04:00 98.1 F 90 97 17 127/74 127/74 12/30/21 02:00 68 17 12/30/21 00:58 98.0 F 97 17 126/74 12/30/21 00:00 98.0 F 97 17 126/74 12/29/21 20:00 98.2 F 85 17 139/65 12/29/21 19:47 85 85 17 139/65 12/29/21 16:25 72 12/29/21 16:00 98.3 F 72 18 145/82 12/29/21 12:08 98.2 F 69 15 143/87 Pulse Ox 12/30/21 08:00 96 12/30/21 04:00 98 12/30/21 02:00 12/30/21 00:58 98 12/30/21 00:00 98 12/29/21 20:00 96 12/29/21 19:47 96 12/29/21 16:25 12/29/21 16:00 12/29/21 12:08 100 Intake and Output 12/29/21 12/30/21 12/30/21 22:59 06:59 14:59 Output Total 300 Balance -300 Output: Urine 300 Other: # Voids 2 GENERAL EXAM: Alert, active, pulse 56-year-old male patient, on room air, comfortable in no apparent distress. HEAD: Normocephalic. EYES: Normal reaction of pupils, equal size. NOSE: Clear with pink turbinates. THROAT: No erythema or exudates. NECK: No masses, no JVD. CHEST: No chest wall deformity. LUNGS: Equal air entry with faint crackles in the posterior bases. CVS: S1 and S2 normal with no audible murmur, regular rhythm. ABDOMEN: No hepatosplenomegaly, normal bowel sounds, no guarding or rigidity. SPINE: No scoliosis or deformity SKIN: No rashes CENTRAL NERVOUS SYSTEM: No focal deficits, tone is normal in all 4 extremities. EXTREMITIES: There is no peripheral edema. No clubbing, no cyanosis. Peripheral pulses are intact. Results - Laboratory Findings CBC and BMP: 12/30/21 07:59 12/30/21 07:59 PT/INR, D-dimer PT 10.9 sec (9.0-12.0) 12/28/21 10:35 INR 1.0 (<1.2) 12/28/21 10:35 Abnormal lab findings: Abnormal Labs 12/28/21 12/28/21 12/28/21 10:35 10:35 10:35 Lymphocytes # 0.8 L Potassium 3.1 L Chloride Carbon Dioxide 21 L BUN Creatinine 0.64 L Glucose POC Glucose (mg/dL) Total Bilirubin 1.7 H Total Protein Albumin Ur Specific [place] 1.036 H Urine Ketones 1+ H 12/29/21 12/29/21 12/29/21 08:46 08:46 19:49 Lymphocytes # 0.7 L Potassium 3.3 L Chloride 108 H Carbon Dioxide BUN 7 L Creatinine Glucose 118 H POC Glucose (mg/dL) 117 H Total Bilirubin 1.5 H Total Protein 5.9 L Albumin 3.4 L Ur Specific [place] Urine Ketones 12/30/21 12/30/21 07:59 07:59 Lymphocytes # 0.8 L Potassium Chloride 110 H Carbon Dioxide BUN 7 L Creatinine Glucose 111 H POC Glucose (mg/dL) Total Bilirubin Total Protein 5.9 L Albumin 3.4 L Ur Specific [place] Urine Ketones - Diagnostic Findings Chest x-ray: image reviewed CT scan - chest: image reviewed Assessment and Plan Assessment: 1 Altered mental status of unclear etiology. Computed tomography scan of the brain revealed no acute process. Angiography revealed no significant stenosis. EEG revealed no seizure activity. Suspected TIA. 2 Recent admission for COVID-19 infection with residual changes remaining on CAT scan. No pulmonary embolism. Pro-calcitonin pending. Stable and on room air. Denies aspiration. Chiang virus by PCR negative. 3 Hyperlipidemia 4 Hypertension 5 Hypothyroidism Plan: The patient was seen and evaluated Chest x-ray, CAT scans and labs reviewed Suspect residual COVID-19 infection Stable and on room air Procalcitonin pending Currently on ceftriaxone and doxycycline Cleared for discharge once cleared by neurology I, the cosigning physician, performed a history & physical examination of the patient. Lungs sounds with faint crackles in the posterior bases. Maintaining good O2 saturations in the 90s on room air. I discussed the assessment and plan of care with my nurse practitioner, Nathalie Singh. I attest to the above consultation as dictated by her. Time with Patient: Greater than 30
--- NOTE | 2021-12-30 11:00 | ECHOF ---
Referral Reason:TIA MEASUREMENTS -------- HEIGHT: 180.3 cm WEIGHT: 112.9 kg BP: 134/70 RVIDd: 3.6 cm (< 3.3) IVSd: 1.6 cm (0.6 - 1.1) LVIDd: 4.3 cm (3.9 - 5.3) LVPWd: 1.6 cm (0.6 - 1.1) IVSs: 2.2 cm LVIDs: 2.1 cm LVPWs: 2.3 cm LAESV Index (A-L): 18.01 ml/m Ao Diam: 3.9 cm (2.0 - 3.7) AV Cusp: 2.6 cm (1.5 - 2.6) LA Diam: 4.6 cm (2.7 - 3.8) MV E Reyes: 0.80 m/s MV DecT: 231 ms MV A Reyes: 0.93 m/s MV E/A Ratio: 0.86 RAP: 5.00 mmHg RVSP: 24.02 mmHg FINDINGS -------- Sinus rhythm. This was a technically difficult study with suboptimal views. The left ventricular size is normal. There is moderate concentric left ventricular hypertrophy. O verall left ventricular systolic function is normal with, an EF between 55 - 60 %. The right ventricle is mildly enlarged. Normal LA size by volume 22+/-6 ml/m2. The right atrial size is normal. 5.0mg of Lumason was utilized for enhancement of images Interatrial and interventricular septum intact. There is no evidence of aortic regurgitation. There is no evidence of aortic stenosis. There is trace mitral regurgitation. Mild tricuspid regurgitation present. There is no evidence of pulmonary hypertension. The right v entricular systolic pressure, as measured by Doppler, is 24.02mmHg. There is no pulmonic regurgitation present. The aortic root size is normal. IVC Not well visulized. There is no pericardial effusion. CONCLUSIONS -------- 1. The left ventricular size is normal. 2. There is moderate concentric left ventricular hypertrophy. 3. Overall left ventricular systolic function is normal with, an EF between 55 - 60 %. 4. The right ventricle is mildly enlarged. 5. There is trace mitral regurgitation. 6. Mild tricuspid regurgitation present. ASSOCIATE PROGRAMMER: Lyndsey Johnston [facility]
--- NOTE | 2021-12-30 15:07 | P.CN ---
Psychiatric Consult - . Consult date: 12/30/21 Consult:: 12/30/21 13:38 IDENTIFYING DATA: This patient is a 56-year-old male who currently lives with his at home REASON FOR REFERRAL: Psychiatry was consulted for "altered mental status and flat affect" HISTORY OF PRESENT ILLNESS: The patient presented to the hospital initially in the ER for altered mental status and suspicion of a stroke. Patient was brought into the hospital as a transfer from his doctor's office. He was apparently having decreased responsiveness confusion and weakness. At the Hospital patient had the stroke team activated and neurology has been following along. On the differential was TIA versus CVA versus seizures. Computed tomography scan and MRI of the brain were negative for any acute events. Syphilis B12 and folic acid were unremarkable. Patient was seen today for a consultation by life insurance underwriter. He was standing at the entrance of his room with an IV hole and greeted life insurance underwriter. He appeared to be confused and hesitant in his speech. He had poor attention span and did not know why he was standing by the door. He claims that he is waiting for "Dr. Chapa". When asked why he states that "I don't know". He appeared to be responding to internal stimuli at times. He knew that he was in [facility] however did not know the situation and did not know today's date. He does know his name. Does not know the president. He was fixated on "going home" and was rambling at times and illogical. He answered inappropriately to most questions and was a poor historian. He denied any depression or anxiety . At this time patient denies any suicidal or homical ideations, intent or plan. Patient denies any auditory, visual hallucinations. Patients admits to using no recreational drugs PAST PSYCHIATRIC HISTORY: Patient has no significant psychiatric history. Patient denies being on any psychiatric medications. Patient denies any previous psychiatric hospitalizations. Patient denies any psychiatric outpatient follow- up. Patient denies any history of suicide attempts in the past. PAST MEDICAL HISTORY:Hyperlipidemia, Hypertension, Thyroid Disorder ALLERGIES: as per EMR. CHEMICAL DEPENDENCY HISTORY: as per HPI. FAMILY PSYCHIATRIC/SUBSTANCE USE HISTORY: denies SOCIAL HISTORY: Unable to assess MENTAL STATUS EXAM: General Appearance: Patient appears to be confused, overweight, stated age is alert, standing by the door. Patient appears to have fair hygiene and grooming wearing hospital gown with poor eye contact. Behavior: Patient is calmly lying in bed without any agitated behavior. Confused and hesitant. Speech: Patient's speech is fluent and nonpressured. Hesitant. [place]. Mood/Affect: Patient reports their mood is "ok", affect is congruent Suicidality/Homicidality: Patient denies having any suicidal or homicidal ideation intent or plan. Perceptions: Patient denies any visual hallucinations and denies any auditory hallucinations Though content/process: Poverty of content. Illogical. Memory and concentration: AOX2, does not know the situation or today's date. Poor attention span. Poor memory recall. Judgment and insight: poor IMPRESSIONS: Delirium, possibly secondary to TIA versus seizure PLAN: -At this time patient DOES NOT meet criteria for inpatient psychiatric admission. -Delirium precautions recommended with patient including - avoiding use of narcotics and PROJECT DRILLING ENGINEER sedatives, limit anticholinergic medications when possible, frequent re-orientation, minimize use of restraints, open window shades during the day and close them at night -Would recommend the following medication changes/additions: Melatonin 3 mg daily at bedtime for sleep. Prolixin 1.5 mg twice a day for psychosis/delirium with prn prolixin for psychosis/agitation -Will continue to follow along if requested over the weekend -continue treating underlying medical comorbities -appreciate neurology recs -Please contact with any questions. 12/30/21 15:00
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
[2021-12-30] MEDS: ATORVASTATIN 40 MG TAB PO SCH (20:40)
[2021-12-30] MEDS: MELATONIN 3 MG TABLET PO SCH (20:40)
[2021-12-31] MEDS: SODIUM CHLORIDE 0.9% 1,000 ML IV SCH ×2 (06:21→17:39)
[2021-12-31] MEDS: LEVOTHYROXINE 75 MCG TAB PO SCH (06:26)
[2021-12-31] MEDS: CLOPIDOGREL 75 MG TAB PO SCH (09:43)
[2021-12-31] MEDS: DOXYCYCLINE 100 MG CAP PO SCH (09:43)
[2021-12-31] MEDS: FAMOTIDINE 20 MG TAB PO SCH ×2 (09:44→20:07)
[2021-12-31] MEDS: ASPIRIN 81 MG PO SCH (09:44)
[2021-12-31] MEDS: THIAMINE 100 MG TAB PO SCH (09:44)
--- NOTE | 2021-12-31 09:51 | P.PN ---
Subjective Progress Note Date: 12/31/21 This is a pleasant 56-year-old male patient who follows with Dr. August Chapa as his primary care provider. He has a history of hyperlipidemia, hypertension, hypothyroidism. Lifelong nonsmoker. He was at his PCPs office yesterday when he had a sudden onset of altered mental status and unresponsiveness. He was transferred here by EMS for and a code stroke was called. The patient's initial NIH score was 28 but prior to his leaving the emergency room was 0. Computed tomography scan of the brain revealed no significant abnormalities. Angiogram of the head revealed patent carotid and vertebral arteries. No large vessel intracranial arterial occlusion, significant stenosis or aneurysmal is seen. EEG was reported as normal. No focal, lateralizing or epileptiform activity. The patient does have a history of COVID-19 infection requiring hospitalization in November 2021. Chest x-ray had revealed no acute pulmonary process. A CT angiogram was performed and was negative for pulmonary embolism. There is some bilateral original pattern suggestive of COVID-19 pneumonia. CoVID screen here was negative. Urine drug screen was negative. White count 7.2. Hemoglobin 13.7. Lymphocytes 0.8. Sodium 139. He hasn't 3.7. BUN 7. Creatinine 0.76. Glucose 111. Vitamin B12 14,000. Treponema Pallidum antibody nonreactive. The patient is seen today in consultation on the selective care unit. He is currently resting comfortably in bed. Awake and alert in no acute distress. No aphasia. No dysphagia. Denies potential for aspiration. He is moving all 4 extremities. The patient is seen today 12/31/2021 in follow-up on the selective care unit. He is much more interactive today. Sitting up in a chair at the bedside. Answering questions appropriately. He denies any shortness of breath, cough or congestion. He denies any chest pain, palpitations dizziness or lightheadedness. He is maintaining good O2 saturations in the 90s on room air. Pro-calcitonin was 0.04. He had been seen and evaluated by psychiatry. Medications have been adjusted. Objective - Vital Signs Vital signs: Vital Signs Temp 97 F L 12/31/21 08:00 Pulse 98 12/31/21 08:00 Resp 18 12/31/21 08:00 BP 140/84 12/31/21 08:00 Pulse Ox 96 12/31/21 08:00 Intake & Output 12/30/21 12/31/21 12/31/21 18:59 06:59 18:59 Intake Total 360 Balance 360 Intake: Oral 360 Other: # Voids 4 - Exam GENERAL EXAM: Alert, active, pleasant 56-year-old male patient, on room air, comfortable in no apparent distress. HEAD: Normocephalic. EYES: Normal reaction of pupils, equal size. NOSE: Clear with pink turbinates. THROAT: No erythema or exudates. NECK: No masses, no JVD. CHEST: No chest wall deformity. LUNGS: Equal air entry with faint crackles in the posterior bases. CVS: S1 and S2 normal with no audible murmur, regular rhythm. ABDOMEN: No hepatosplenomegaly, normal bowel sounds, no guarding or rigidity. SPINE: No scoliosis or deformity SKIN: No rashes CENTRAL NERVOUS SYSTEM: No focal deficits, tone is normal in all 4 extremities. EXTREMITIES: There is no peripheral edema. No clubbing, no cyanosis. Peripheral pulses are intact. - Labs CBC & Chem 7: 12/30/21 07:59 12/30/21 07:59 Labs: Abnormal Lab Results - Last 24 Hours (Table) 12/30/21 Range/Units 00:53 Vitamin B12 1400.0 H (200.0-944.0) pg/mL Assessment and Plan Assessment: 1 Altered mental status of unclear etiology. Computed tomography scan of the brain revealed no acute process. Angiography revealed no significant stenosis. EEG revealed no seizure activity. Psychiatry had been consulted 2 Recent admission for COVID-19 infection with residual changes remaining on CAT scan. No pulmonary embolism. Pro-calcitonin negative. Stable and on room air. Denies aspiration. Chiang virus by PCR negative. 3 Hyperlipidemia 4 Hypertension 5 Hypothyroidism Plan: The patient was seen and evaluated Stable for discharge from the pulmonary standpoint Intake and good O2 saturation high 90s on room air Procalcitonin negative, discontinue antibiotics I, the cosigning physician, performed a history & physical examination of the patient. Lungs sounds with faint crackles in the posterior bases. Maintaining good O2 saturations in the 90s on room air. I discussed the assessment and plan of care with my nurse practitioner, Nathalie Singh. I attest to the above note as dictated by her.
[2021-12-31 12:22] LABS: HCT 42.3 % (39.0-53.0); HGB 14.2 gm/dL (13.0-17.5); MCH 31.8 pg (25.0-35.0); MCHC 33.5 g/dL (31.0-37.0); MCV 94.7 fL (80.0-100.0); Mean Platelet Volume 8.2; Platelet Count 282 k/uL (150-450); RBC 4.47 m/uL (4.30-5.90); RDW 14.3 % (11.5-15.5); WBC 9.1 k/uL (3.8-10.6)
--- NOTE | 2021-12-31 18:13 | PN ---
PROGRESS NOTE DATE OF SERVICE: 12/31/2021 This 56-year-old gentleman, admitted with change in mental status, possible seizures or TIA, is being closely monitored. No chest pain. No palpitations. No fever. PHYSICAL EXAMINATION: Pulse 84, blood pressure 154/70, respirations 16, temperature 98 degrees, pulse ox 100 % on room air. HEENT: Conjunctivae normal. NECK: No jugular venous distention. CARDIOVASCULAR: S1, S2 muffled. RESPIRATION: Breath sounds diminished at the bases. ABDOMEN: Soft, nontender. NERVOUS SYSTEM: No focal deficit. LABS: Reviewed. ASSESSMENT: 1. Change in mental status, acute metabolic encephalopathy. 2. Possible acute transient ischemic attack. 3. Possible seizure disorder. 4. History of recent COVID-19. 5. Hypertension. RECOMMENDATIONS AND DISCUSSION: I recommend to continue current medications, continue symptomatic treatment, PT/OT evaluation. Otherwise, closely follow with Neurology. Guarded prognosis. Further recommendations to follow. MMODL / IJN: [id number] /
[2021-12-31] MEDS: ATORVASTATIN 40 MG TAB PO SCH (20:07)
[2021-12-31] MEDS: MELATONIN 3 MG TABLET PO SCH (20:07)
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
[2022-01-01] MEDS: SODIUM CHLORIDE 0.9% 1,000 ML IV SCH ×2 (01:02→06:27)
--- NOTE | 2022-01-01 02:01 | P.PN ---
Subjective Progress Note Date: 12/31/21 12/31/2021: This is a telemedicine neurology follow performed today on 12/31/2021. Patient is laying comfortably in the bed. Patient states "I'm doing good". Denies any new symptoms. Denies headache. No focal symptoms. Objective - Vital Signs Vital signs: Vital Signs Temp 98.4 F 01/01/22 00:00 Pulse 95 01/01/22 00:00 Resp 18 01/01/22 01:28 BP 163/92 01/01/22 00:00 Pulse Ox 97 01/01/22 00:00 Intake & Output 12/31/21 12/31/21 01/01/22 06:59 18:59 06:59 Intake Total 1020 Balance 1020 Intake: Oral 1020 Other: # Voids 4 1 - Exam Patient is alert and awake. Patient still has flat affect. Patient is fully oriented. Speech and language functions are normal. No aphasia. No paraphasic errors. On cranial examination pupils are round and reacting to light, visual basurto are full, extraocular muscles are intact, face is symmetric and tongue protrudes the midline. Palatal elevation and sensation normal. Hearing normal. On muscle strength testing there is no pronator drift and the strength is normal in arms and legs. No ataxia for [id number] testing. Tone and bulk of muscles normal. Sensations equal with no neglect. - Labs CBC & Chem 7: 12/31/21 11:48 12/30/21 07:59 Assessment and Plan Assessment: * Altered mental status, unclear etiology. All neurological workup negative. Doubt cerebral ischemia. Patient appears to be harboring some guilt, appears depressed, suspicious, quiet, almost appears psychiatric in nature. * Hypertension * Hyperlipidemia Plan: * MRI of the brain without contrast is normal. No evidence of acute stroke. I personally reviewed MRI and agree with the findings. * Patient had a normal CTA of head and neck. * 2-D echo revealed normal sinus rhythm. There is moderate concentric LVH. Left-ventricular size is normal. Overall left ventricular systolic function is normal with an EF between 55-60%. Right ventricle is mildly enlarged. * EEG was performed, which is completely normal awake and drowsy. No focal, lateralizing or epileptiform activity was seen. * Lipid panel shows cholesterol 88, LDL 35, HDL 42 and triglycerides 51. We will decrease Lipitor to 40 mg. * Hemoglobin A1c 5.9 * Continue Aspirin but will increase the dose to 162 mg daily. No indication for dual antiplatelet medications. Continue Lipitor. * Reviewed notes of Chioma Flowers MUSIC VIDEO PRODUCER-MARY. Agree the patient needs psychiatry reevaluation. This was my impression as well, as of my last two encounter with the patient. No evidence of stroke, TIA or seizure. * Neurology will sign off. Please reconsult neurology if any other concerns.
[2022-01-01] MEDS: LEVOTHYROXINE 75 MCG TAB PO SCH (06:21)
[2022-01-01] MEDS: FAMOTIDINE 20 MG TAB PO SCH ×2 (08:29→21:20)
[2022-01-01] MEDS: THIAMINE 100 MG TAB PO SCH (08:29)
[2022-01-01] MEDS: ASPIRIN 81 MG PO SCH (08:29)
--- NOTE | 2022-01-01 17:07 | PN ---
PROGRESS NOTE DATE OF SERVICE: 01/01/2022 This 56-year-old gentleman admitted with possible TIA continues to be confused. No chest pain. No palpitations. No fever. The COVID brain is also a possibility. PHYSICAL EXAMINATION: Pulse 99, blood pressure 150/96, respiration 18, temperature 98.5. HEENT: Conjunctivae normal. CARDIOVASCULAR: S1, S2 muffled. RESPIRATION: Breath sounds diminished at the bases. No rhonchi. No crackles. ABDOMEN: Soft, nontender. NERVOUS SYSTEM: Moves all 4 limbs. No focal deficit. LABS: CBC within normal limits. ASSESSMENT: 1. Change in mental status, acute metabolic encephalopathy; possibly COVID brain. 2. Possible acute transient ischemic attack, present on admission. 3. Possible seizure disorder. 4. History of recent COVID-19. 5. Hypertension. RECOMMENDATIONS AND DISCUSSION: I recommend to continue current medications, continue with the monitoring, symptomatic treatment. Otherwise closely follow with Neurology. PT/OT evaluation. Increase ambulation. Further recommendations to follow. MMODL / IJN: [id number] /
[2022-01-01 19:18] LABS: C Reactive Protein <0.5 mg/dL (<1.0); LDH 562 U/L (313-618)
[2022-01-01] MEDS: ATORVASTATIN 40 MG TAB PO SCH (21:20)
[2022-01-01] MEDS: MELATONIN 3 MG TABLET PO SCH (21:20)
[2022-01-02] MEDS: LEVOTHYROXINE 75 MCG TAB PO SCH (05:52)
[2022-01-02] MEDS: THIAMINE 100 MG TAB PO SCH (09:08)
[2022-01-02] MEDS: ASPIRIN 81 MG PO SCH (09:08)
[2022-01-02] MEDS: FAMOTIDINE 20 MG TAB PO SCH ×2 (09:08→20:33)
--- NOTE | 2022-01-02 14:59 | P.PN ---
Progress Note - Text Progress Note Date: 01/02/22 Interval History: Patient was seen today for psychiatric follow-up regarding patient's delirium/ confusion. Patient was previously started on Prolixin and also melatonin has been taking them over the weekend. Patient was standing up folding his sheet onto his bed when leader writer approached him. He continues to appear to be confused however was alert and oriented 4 today. He remembered the situation as to what brought him in the hospital. He continues to look around the room at times and hesitant in his answers. He initially answered some questions wrong however likely corrected himself. His attention span seems to be improving. He claims that he does feel "a bit sad" and claims that he has mild anxiety. He states that he only slept some hours last night. Nurse taking care of patient states that he has been pacing and staring at the wall earlier and not the best sleep last night. At this time patient denies any suicidal or homical ideations, intent or plan. Patient denies any auditory, visual hallucinations. Patient denies any side effects from the medications and has been compliant with meds. Mental Status Exam: General Appearance: Patient appears to be less confused, overweight, stated age is alert, standing by the his bed. Patient appears to have fair hygiene and g rooming wearing hospital gown Behavior: Patient is calmly lying in bed without any agitated behavior. Confused and hesitant, improving moderately Speech: Patient's speech is fluent and nonpressured. Hesitant Mood/Affect: Patient reports their mood is "a bit sad", affect is congruent Suicidality/Homicidality: Patient denies having any suicidal or homicidal ideation intent or plan. Perceptions: Patient denies any visual hallucinations and denies any auditory hallucinations Though content/process: Poverty of content. More logical today. [place]. Memory and concentration: AOX4. Improving attention span. Poor memory recall. Judgment and insight: poor, improving mildly IMPRESSIONS: Delirium, possibly secondary to TIA versus seizure PLAN: -At this time patient DOES NOT meet criteria for inpatient psychiatric admission. 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 Increased Prolixin 2 mg twice a day for psychosis/delirium with prn prolixin for psychosis/agitation -Will continue to follow along -continue treating underlying medical comorbities -appreciate neurology recs -Please contact with any questions.
--- NOTE | 2022-01-02 17:10 | PN ---
PROGRESS NOTE DATE OF SERVICE: 01/02/2022 This 56-year-old gentleman who was admitted with some change in mental status and TIA is being closely monitored. The patient is mildly confused, generally weak. No chest pain. No palpitation. PHYSICAL EXAMINATION: Pulse 71, blood pressure 144/76, respiration 18. HEENT: Conjunctivae normal. CARDIOVASCULAR: S1, S2 muffled. RESPIRATION: Breath sounds diminished at the bases. No rhonchi. No crackles. ABDOMEN: Soft, nontender. NERVOUS SYSTEM: Mild diffuse weakness. LABS: Reviewed. D-dimer is normal. ASSESSMENT: 1. Change in mental status, acute metabolic encephalopathy, possibly long COVID. 2. Possible acute transient ischemic attack. 3. Possible seizure disorder. 4. History of recent COVID-19. 5. Hypertension. RECOMMENDATIONS AND DISCUSSION: I recommend to continue current medications, continue with the monitoring, symptomatic treatment. Closely follow with Psychiatry. Dr. Chapa will follow tomorrow. Prognosis guarded. MMODL / IJN: [id number] /
[2022-01-02] MEDS: SODIUM CHLORIDE 0.9% 1,000 ML IV SCH ×2 (20:34→21:30)
[2022-01-02] MEDS: ATORVASTATIN 40 MG TAB PO SCH (20:34)
[2022-01-02] MEDS ORDERED: MIRTAZAPINE 15 MG TAB PO SCH (21:00)
[2022-01-03] MEDS: LEVOTHYROXINE 75 MCG TAB PO SCH (06:13)
[2022-01-03] MEDS: FAMOTIDINE 20 MG TAB PO SCH (08:44)
[2022-01-03] MEDS: THIAMINE 100 MG TAB PO SCH (08:44)
[2022-01-03] MEDS: ASPIRIN 81 MG PO SCH (08:44)
[2022-01-03 10:30] VITALS: TEMP 97.7
[2022-01-03 11:40] VITALS: BMI 34.7
[2022-01-03 13:31] VITALS: BP 142/95; PULSE 124; RESP 18
--- NOTE | 2022-01-03 13:58 | P.PN ---
Progress Note - Text Progress Note Date: 01/03/22 Interval History: Patient was seen today for psychiatric follow-up regarding patient's delirium/ confusion. He is doing better in terms of his confusion today according to his nurse. She claims that patient had a difficult time with sleep last night and was pacing. Patient was seen sitting at his bedside today and was agreeable to streaked a movie writer. He appears to be more appropriate and denied any overnight complaints. He states that he has difficulty with sleep sometimes. He states that he spoke with his who wants him to come home. He appeared to be more future oriented today and more clear in his thought process. He showed improvement in his attention span as well. He was alert and oriented 4 today. He claims that he feels the medications have been helping him. He is denying any depression or anxiety today. He is denying any auditory or visual hallucinations. He is denying any suicidal or homicidal ideations intent or plan. she has been compliant with his medications. Mental Status Exam: General Appearance: Patient appears to be overweight, stated age is alert, sitting at the side of his bed. Patient appears to have fair hygiene and grooming wearing hospital gown Behavior: Patient is calmly lying in bed without any agitated behavior. improving, more directable today. Speech: Patient's speech is fluent and nonpressured. Mood/Affect: Patient reports their mood is "good", affect is congruent Suicidality/Homicidality: Patient denies having any suicidal or homicidal ideation intent or plan. Perceptions: Patient denies any visual hallucinations and denies any auditory hallucinations Though content/process: More logical today. [place], improving moderately. More goal oriented. Memory and concentration: AOX4. Improving attention span. Poor memory recall. Judgment and insight: improving mildly IMPRESSIONS: Delirium, possibly secondary to TIA versus seizure PLAN: -At this time patient DOES NOT meet criteria for inpatient psychiatric admission. 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 Prolixin 2 mg twice a day for psychosis/delirium. this can be continued as an outpatient. -At this time psychiatry will sign off. Please provide patient with outpt follow up resources -Please contact with any questions.
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
[2022-01-03] MEDS ORDERED: MIRTAZAPINE 15 MG TAB PO SCH (21:00)
[2022-01-03] MEDS ORDERED: MELATONIN 3 MG TABLET PO SCH (21:00)
== END 2022-01-03 17:33 | disposition home health service (06) ==
LOC: EC 10:03 → 3SCARD 12:55
PROVIDERS: ADMIT Family Medicine; ATTEND Family Medicine
DX: R41.82 Altered mental status, unspecified (principal); I11.9 Hypertensive heart disease without heart failure; E78.5 Hyperlipidemia, unspecified; E03.9 Hypothyroidism, unspecified; I07.1 Rheumatic tricuspid insufficiency; E78.00 Pure hypercholesterolemia, unspecified; Z87.01 Personal history of pneumonia (recurrent); F80.9 Developmental disorder of speech and language, unspecified; G93.41 Metabolic encephalopathy; I49.3 Ventricular premature depolarization; J35.1 Hypertrophy of tonsils; Z20.822 Contact with and (suspected) exposure to COVID-19; Z86.16 Personal history of COVID-19; Z87.891 Personal history of nicotine dependence; Z79.899 Other long term (current) drug therapy; Z79.890 Hormone replacement therapy; Z79.82 Long term (current) use of aspirin; Y04.0XXA Assault by unarmed brawl or fight, initial encounter
CPT/HCPCS: 99285; 96366 ×3; 96367; 96365; 36415; 95816; 93005; 93306; 97161; 97165; 83921; 85379; 84425; 80061; 80053 ×3; 85652; 82607; 82140; 82746; 83615; 83735; 84132 ×2; 84484; 85025 ×3; 85027; 85610; 85730; 86140; 81003; 86780; 80306; 83036; 84145; 87635; 71046; 70496; 70450 ×2; 70498; 71275; 70551; G0378 ×7; J3480; J0696 ×2; Q9950; Q9967 ×2